=== PATIENT | female | born 1945 | race Caucasian/White ===

== ENCOUNTER → 2018-04-17 | Outpatient (CLI) | payer OTHER | END | disposition home or self-care (01) | LOC: LAB SHORT 14:54 → PLD 14:54 | DX: D04.21 Carcinoma in situ of skin of right ear and external auricular canal (principal); C44.319 Basal cell carcinoma of skin of other parts of face | CPT/HCPCS: 88305 ==

== ENCOUNTER 2019-03-03 10:11 | Day surgery (SDC) | payer OTHER ==
[~2019-03-03] VITALS: Ht 165.1 cm; Wt 73.1 kg
[~2019-03-03 10:11] MED LIST: AMLO5 PO; Aspir 8181 MG PO; CO Q10100 MG PO; HYDCHL25 PO; IRBE150 PO; MONT10T PO; VITAMIN D35000 UNIT PO
--- NOTE | 2019-03-03 11:24 | NUR ---
03/03/19 1124 ANDRIY GULILEN PATIENT SHOULD HAVE HAD 4 BOTTLES OF PREP ONLY RECVD 2. 1 BOTTLE USED SUCCESSFULLY 2 BOTTLE THREW UP 1 ENEMA RESULTS:
== END 2019-03-03 13:34 | disposition home or self-care (01) ==
LOC: ORSCSDS 10:11
PROVIDERS: Student in an Organized Health Care Education/Training Program
PROC: 0DB98ZX Excision of Duodenum, Via Natural or Artificial Opening Endoscopic, Diagnostic (ICD-10-PCS; principal; 2019-03-03 11:30)
PROC: 0DB48ZX Excision of Esophagogastric Junction, Via Natural or Artificial Opening Endoscopic, Diagnostic (ICD-10-PCS; principal; 2019-03-03 11:30)
PROC: 0DB68ZX Excision of Stomach, Via Natural or Artificial Opening Endoscopic, Diagnostic (ICD-10-PCS; principal; 2019-03-03 11:30)
DX: R19.7 Diarrhea, unspecified (principal); Z86.010 Personal history of colon polyps; I10 Essential (primary) hypertension; F17.210 Nicotine dependence, cigarettes, uncomplicated; Z79.82 Long term (current) use of aspirin; Z79.899 Other long term (current) drug therapy; K29.80 Duodenitis without bleeding; K21.9 Gastro-esophageal reflux disease without esophagitis; K22.2 Esophageal obstruction; K29.70 Gastritis, unspecified, without bleeding
CPT/HCPCS: 88305; 88342; J2704; J7120

== ENCOUNTER → 2019-04-21 | Outpatient (CLI) | payer OTHER ==
[2019-04-21 11:02] LABS: Source, Urine Clean Catch
[2019-04-21 13:41] LABS: Bilirubin, Urine Neg (Neg); Blood, Urine 3+ (Neg); Glucose Qualitative, Urine Neg (Neg); Ketones, Urine Neg (Neg); Leukocyte Esterase, Urine Neg (Neg); Nitrite, Urine Neg (Neg); Protein, Urine Neg (Neg); Urobilinogen, Urine NORM (Normal)
[2019-04-21 14:08] LABS: Appearance, Urine Clear (Clear); Bacteria Few /hpf; Color, Urine Yellow (P-Yellow); Squamous Epithelial Cells Few /hpf (Few); White Blood Cells, Urine 0-2 /hpf (0-5)
== END | disposition home or self-care (01) ==
LOC: LAB 11:01 → LAB SHORT 11:01
PROVIDERS: Internal Medicine
DX: N39.0 Urinary tract infection, site not specified (principal)
CPT/HCPCS: 81001

== ENCOUNTER → 2019-06-16 | Outpatient (CLI) | payer OTHER ==
[~2019-06-16] MED LIST changes: +ACET325 PO; +ACIDOPHILUS1 EAC3; +ASCO500 PO; +AZELASTINE137 MCG/0.; +Aspirin EC81 MG PO; +Avapro300 MG PO; +COQ-10100 MG PO; +Celexa10 MG PO; +L-LYSINE600 MG PO; +LOVAZA1 GM PO; +Metamucil Plus1 EACH PO; +NAPR220 PO; +VITAMIN B-121000 MC3 PO; +VITAMIN D35000 UNI2 PO; +Ventolin/Prove6.7 GM INH
[2019-06-18 16:09] LABS: DOPAMINE, URINE 49 ug/L (Undefined)
[2019-06-18 17:09] LABS: METANEPHRINE, UR 30 ug/L (Undefined)
== END | disposition home or self-care (01) ==
LOC: LAB 04:30 → LAB SHORT 04:30 → LAB FUT 06-11 08:20
PROVIDERS: Internal Medicine
DX: F32.9 Major depressive disorder, single episode, unspecified (principal); D35.00 Benign neoplasm of unspecified adrenal gland
CPT/HCPCS: 81050